=== PATIENT | female | born 1945 | race Caucasian/White ===

== ENCOUNTER 2025-01-09 13:04 | Outpatient (CLI) | payer MEDICARE, OTHER, SELFPAY ==
--- NOTE | ~2025-01-09 | DEXA_ITS ---
Bone Density Report Name: KIM MARTINEZ Age: 79 Sex: Female Ethnicity: White Date of : 1945 Indication: postmenopausal; screening for osteoporosis; height loss; prior fracture; cancer; hysterectomy; Referring Provider: MIKAYLA ATKINSON Study: Bone densitometry was performed. Exam Date: January 09, 2025 Accession number: [id number] Bone Density: Region BMD T-score Z-score Classification Femoral Neck (Left) 0.651 -1.8 0.5 Osteopenia Total Hip (Left) 0.774 -1.4 0.7 Osteopenia Femoral Neck (Right) 0.596 -2.3 0.0 Osteopenia Total Hip (Right) 0.728 -1.8 0.3 Osteopenia Total Hip Mean 0.751 -1.6 0.5 Osteopenia World Health Organization criteria for BMD impression classify patients as: Normal (T-score at or above -1.0), Osteopenia (T-score between -1.0 and -2.5), or Osteoporosis (T-score at or below -2.5). 10-year Fracture Risk: FRAX not reported because: Prior hip or vertebral fracture Treated for osteoporosis Clinical Information Provided by Patient: Have had a previous hip or vertebral fracture Has had a low trauma fracture Is being treated for osteoporosis Has used the following medications: Vitamin D, Calcium Has the following medical conditions: Cancer, Hysterectomy Patient maximum height was 67 Menopause Age: 50 No regular weight bearing exercise Drinks caffeinated beverages Onset of menses at age 12 Number of children 2 Impression: The patient has low bone mass, based on the Right Femoral Neck T-score. The patient has risk factors, including: previous fracture. Discussion: It is important to ask patients whether they are taking their medications and to encourage continued and appropriate compliance with their osteoporosis therapies to reduce fracture risk. It is also important to review their risk factors and encourage appropriate calcium and vitamin D intakes, exercise, fall prevention and other lifestyle measures. Follow-Up: Consider a repeat BMD and Vertebral Fracture Assessment (VFA) exam in 2 years or sooner if medically necessary, to reassess this patient's status. Reported by: PAUL on 01/09/2025 1:38:00 PM. Reviewed, dictated and finalized at location A.
== END 2025-01-09 13:05 | disposition home or self-care (01) ==
LOC: MICIMG 13:05
DX: M85.89 Other specified disorders of bone density and structure, multiple sites (principal); Z13.820 Encounter for screening for osteoporosis
CPT/HCPCS: 77080

== ENCOUNTER 2025-03-30 14:11 | Emergency (ER) | payer MEDICARE, OTHER, SELFPAY ==
--- NOTE | ~2025-03-30 | XR_ITS ---
EXAMINATION: XR chest 2V, 03/30/2025 14:42 HEALTH UNIT SUPERVISOR HISTORY: chest pain COMPARISON: No comparisons available. Technique: 2 views obtained. Findings: The lungs are clear, no effusion. No pneumothorax. Heart is normal size. Mediastinal and hilar contours are within normal limits. Bony thorax no acute abnormality. Impression: No acute cardiopulmonary abnormality. Reviewed, dictated and finalized at location P. TH UNIT SUPERVISOR Impression: No acute cardiopulmonary abnormality.
--- OUTSIDE RECORDS SUMMARY | 2025-03-30 14:13 | XMS_ITS | Clinical Summary ---
Author Organization [facility] Address [address] [place] [address] Phone Care Team Providers Care Spar Finisher Name Role Phone Gael Layne MD Primary Care Provider [phone] Allergies Active Allergy Reactions Criticality Noted Date Comments Codeine Swelling 12/14/2018 Social History Tobacco Use Types Packs/Day Years Used Date Smoking Tobacco: Former Cigarettes Smokeless Tobacco: Never Alcohol Use Standard Drinks/Week Comments Not Currently 0 (1 standard drink = 0.6 oz pur e alcohol) Comments No Sex and Gender Information Value Date Recorded Sex Assigned at Not on file Legal Sex Female 3:58 PM CDT Gender Identity Not on file Sexual Orientation Not on file Last Filed Vital Signs Vital Sign Reading Time Taken Comments Blood Pressure 149/72 12/14/2018 3:52 PM CDT Pulse 61 12/14/2018 3:52 PM CDT Temperature 37.2 C (98.9 F) 12/14/2018 3:52 PM CDT Respiratory Rate 16 12/14/2018 3:52 PM CDT Oxygen Saturation 96% 12/14/2018 3:52 PM CDT Inhaled Oxygen Concentration - - Weight 87.1 kg (192 lb) 12/14/2018 3:52 PM CDT Height 167.6 cm (5' 6) 12/14/2018 3:52 PM CDT Body Mass Index 30.99 12/14/2018 3:52 PM CDT Plan of Treatment Health Maintenance Due Date Last Done Comments Hepatitis C Virus (HCV) Screening 1945 TdaP Immunization 1945 Pneumococcal Immunization (5 0+ years) (1 of 1 - PCV) 1995 Zoster Immunization (1 of 2) 1995 Medicare Initial AWV [id number] 02/10/2011 Respiratory Syncytial Virus (RSV) Immunization (Adult) (1 - 1-dose 75+ series) 2020 Influenza Immunization (#1) 2024 SARS-COV-2 Immunization (2024- season) 2024 Hepatitis B Immunization Aged Out No longer eligible based on patient's age to complete this topic Human Papillomavirus (HPV) Immunization (No Doses Required) Completed Meningococcal Immunization (ACWY) Aged Out No longer eligible based on patient's age to complete this topic Rotavirus Immunization Aged Out No lo nger eligible based on patient's age to complete this topic Insurance MEDICARE [facility] Care Teams Spar Finisher Relationship Specialty Start Date End Date Gael Layne MD [address] [place] [address] PCP - General Family Medicine 12/14/18
--- NOTE | 2025-03-30 14:16 | ECG_ITS ---
Test Date: 2025-03-30 14:22:37 Measurements Intervals [place] Rate: 51 P: 43 MT: 194 QRS: -33 QRSD: 93 T: -7 QT: 448 QTc: 414 Interpretive Statements SINUS BRADYCARDIA LEFT AXIS DEVIATION PATTERN CONSISTENT WITH PULMONARY DISEASE VOLTAGE CRITERIA FOR LVH BORDERLINE T WAVE ABNORMALITY- ANTEROLAT/INF LEADS BASELINE ARTIFACT- I, II, III, AVR, AVL, AVF BORDERLINE ECG NO PRIOR ECG FOR COMPARISON Electronically Signed On 03-30-2025 14:24:05 MACHINIST SUPERVISOR OUTSIDE by Victor M Barnes D.O.
[2025-03-30 14:17] VITALS: BP 100/53; PULSE 52; RESP 20; TEMP 36.2; O2SAT 98
[2025-03-30 14:37] LABS: Hematocrit 39.8 % (37.0-47.0); Hemoglobin 12.7 g/dL (12.0-15.0); Immature Granulocyte Percent A 0.4 % (0-0.5); Lymphocytes Absolute Auto 1.28 K/mm3 (0.9-3.2); Mean Corpuscular HGB Conc 31.9 g/dl (32-36); Mean Corpuscular Hemoglobin 28.9 pg (26-34); Mean Corpuscular Volume 90.5 fl (80-100); Nucleated Red Blood Cells Absolute Auto 0.000 K/mm3 (0.0-0.012); Nucleated Red Blood Cells Perc 0.0 % (0.0-0.2); Platelet Count Result 258 k/mm3 (150-375); Red Blood Count 4.40 M/mm3 (4.2-5.4); White Blood Count 7.6 K/mm3 (4.5-10.0)
[2025-03-30 14:53] LABS: Alanine Aminotransferase 14 U/L (6-35); Albumin Level 4.0 g/dL (3.5-5.1); Alkaline Phosphatase 101 U/L (38-126); Anion Gap 8 mmol/L (4-12); Aspartate Amino Transferase 20 U/L (14-36); Bilirubin,Total 0.5 mg/dL (0.2-1.3); Blood Urea Nitrogen 21 mg/dL (7-17); Calcium 8.9 mg/dL (8.4-10.2); Carbon Dioxide 23 mmol/L (22-30); Chloride 106 mmol/L (98-107); Estimated Glomerular Filt Rate 48; Glucose 127 mg/dL (65-110); INR 1.3; Lipase 68 U/L (23-300); Potassium 3.9 mmol/L (3.4-5.0); Prothrombin Time 16.6 Seconds (11.1-14.7); Sodium 137 mmol/L (137-145); Total Protein 7.0 g/dL (6.3-8.2)
[2025-03-30 14:54] LABS: Partial Thromboplastin Time 32.7 Seconds (22.3-36.8)
[2025-03-30 15:00] LABS: Troponin I < 0.012 ng/mL (0.000-0.034)
--- NOTE | 2025-03-30 15:15 | ED_ITS ---
HPI - Chest Pain General Chief Complaint: Chest Pain Stated Complaint: chest pain Time Seen by Provider: 03/30/25 15:03 Source: patient and EMS Mode of arrival: EMS Limitations: no limitations History of Present Illness HPI narrative: 80 years old white female came to the ED from assisting living BY AMBULANCE BECAUSE CHEST PAIN AND SHORTNESS OF BREATH. IN THE ED PATIENT IS ASYMPTOMATIC, PATIENT IS VERY ANGRY BECAUSE SHE IS TELLING ME THAT SHE NEVER COMPLAINED OF CHEST PAIN OR SHORTNESS OF BREATH. CURRENTLY HER MAIN SYMPTOM IS ANGRY AND DOES NOT KNOW WHY SHE IS IN THE EMERGENCY ROOM. PATIENT IS AWAKE ALERT ORIENTED X4. Related Data Allergies Allergy/AdvReac Type Severity Reaction Status Date / Time codeine Allergy Mild Hives Verified 03/30/25 14:21 NSAIDS (Non-Steroidal Allergy Mild Hives Verified 03/30/25 14:21 Anti-Inflamma Review of Systems 2 Review of Systems: All systems reviewed & are unremarkable except as noted in HPI and below Exam 2 Narrative: GENERAL APPEARANCE: WELL-DEVELOPED, WELL-NOURISHED SKIN: NORMAL COLOR HEAD: NORMOCEPHALIC, NONTRAUMATIC EYES: CLEAR CONJUNCTIVA ENT: OROPHARYNX NORMAL, EARS NORMAL, NOSE NORMAL NECK: SUPPLE, NONTENDER CHEST AND RESPIRATORY: AIRWAY PATENT, NO RESPIRATORY DISTRESS, NO ACCESSORY MUSCLE USE HEART: REGULAR RATE/RHYTHM ABDOMEN: SOFT, NONTENDER, NO ORGANOMEGALY, QUIET BOWEL SOUNDS VASCULAR: NORMAL PERIPHERAL PULSES, NORMAL CAPILLARY REFILL. MUSCULOSKELETAL: NORMAL RANGE OF MOTION, NONTENDER BACK NEUROLOGIC: ALERT AND ORIENTED ?3, FRONT OFFICE JAVA DEVELOPER IS NORMAL TESTED, NO GROSS MOTOR DEFICIT Course Vital Signs Vital signs: Vital Signs Temperature 36.2 C L 03/30/25 14:17 Pulse Rate 52 L 03/30/25 14:17 Respiratory Rate 20 03/30/25 14:17 Blood Pressure 100/53 L 03/30/25 14:17 Pulse Oximetry 98 03/30/25 14:17 Oxygen Delivery Room Air 03/30/25 14:17 Temperature 36.2 C L 03/30/25 14:17 Pulse Rate 73 03/30/25 17:29 Respiratory Rate 18 03/30/25 17:29 Blood Pressure 151/71 H 03/30/25 17:29 Pulse Oximetry 98 03/30/25 17:29 Oxygen Delivery Room Air 03/30/25 14:17 [facility] MDM Narrative Medical decision making narrative: Patient CAME TO THE ED BY AMBULANCE WITH A REPORTED THAT PATIENT COMPLAINED OF CHEST PAIN. PATIENT DENIED ANY CHEST PAIN , PATIENT EXTREMELY ANGRY , TELLING ME THAT SHE DID NOT COMPLAIN OF CHEST PAIN OR SHORTNESS OF BREATH AND WHY SHE IS HERE. Vital signs showing blood pressure 100/53, heart rate 52, otherwise within normal limit Physical examination UNREMARKABLE, PATIENT AWAKE ALERT ORIENTED X4 Differential diagnosis include coronary artery disease, pulmonary embolism, pneumonia, pleural effusion, pleurisy, chest wall pain, blood workup today includes CBC, CMP, troponin, D-dimer showed no significant abnormality Chest x-ray showed no acute abnormality EKG showed sinus bradycardia DIAGNOSIS ALLEGED CHEST PAIN THE PT WAS DISCHARGED TO HOME.THE PT,S CONDITION UPON DISCHARGE WAS FAIR,EDUCATION WAS PROVIDED TO THE PT IN REFERENCE TO THE FINAL IMPRESSION,DISCHARGE STUDY RESULTS,TREATMENT,PROGNOSIS AND NEED FOR FOLLOW UP . Differential Diagnosis Differential Diagnosis: as above Medical Records I have reviewed the following patient records and this information was taken into consideration when formulating the assessment and plan.: previous ER visits, previous hospitalizations and previous clinic visits Lab Data 03/30/25 14:29 03/30/25 14:29 Labs: Lab Results 03/30/25 Range/Units 14:29 WBC 7.6 (4.5-10.0) K/mm3 RBC 4.40 (4.2-5.4) M/mm3 Hgb 12.7 (12.0-15.0) g/dL Hct 39.8 (37.0-47.0) % MCV 90.5 (80-100) fl MCH 28.9 (26-34) pg MCHC 31.9 L (32-36) g/dl RDW 14.3 (11.5-14.5) % Plt Count 258 (150-375) k/mm3 MPV 9.8 (7.4-10.4) fl Immature Gran % (Auto) 0.4 (0-0.5) % Neut % (Auto) 67.7 (45.5-73.1) % Lymph % (Auto) 16.8 L (18.3-44.2) % Wetzel % (Auto) 11.2 H (2.6-8.5) % Eos % (Auto) 3.4 (0-4.4) % Baso % (Auto) 0.5 (0.2-1.2) % Lymph # (Auto) 1.28 (0.9-3.2) K/mm3 Wetzel # (Auto) 0.9 H (0.1-0.6) K/mm3 Eos # (Auto) 0.3 (0-0.3) K/mm3 Baso # (Auto) 0.0 (0.0-0.1) K/mm3 Abs Immat Gran (auto) 0.03 (0.00-0.031) K/mm3 Absolute Neuts (auto) 5.2 (1.3-6.7) K/mm3 Absolute Nucleated RBC 0.000 (0.0-0.012) K/mm3 Nucleated RBC % 0.0 (0.0-0.2) % PT 16.6 H (11.1-14.7) Seconds INR 1.3 APTT 32.7 (22.3-36.8) Seconds D-Dimer < 0.27 (<0.48) ug/mL Sodium 137 (137-145) mmol/L Potassium 3.9 (3.4-5.0) mmol/L Chloride 106 (98-107) mmol/L Carbon Dioxide 23 (22-30) mmol/L Anion Gap 8 (4-12) mmol/L BUN 21 H (7-17) mg/dL Creatinine 1.09 H (0.7-1.0) mg/dL Estim Creat Clear Calc Not Reportable Estimated GFR 48 L (59 - ) Glucose 127 H (65-110) mg/dL Calcium 8.9 (8.4-10.2) mg/dL Total Bilirubin 0.5 (0.2-1.3) mg/dL AST 20 (14-36) U/L ALT 14 (6-35) U/L Alkaline Phosphatase 101 (38-126) U/L Troponin I < 0.012 (0.000-0.034) ng/mL Total Protein 7.0 (6.3-8.2) g/dL Albumin 4.0 (3.5-5.1) g/dL Lipase 68 (23-300) U/L Imaging Data Radiologist's impression: ITS Impressions Chest X-Ray 03/30/25 14:54 Impression: No acute cardiopulmonary abnormality. ECG Data EKG #1: Attestation: I personally reviewed and interpreted this ECG as follows: ECG completion date: 03/30/25 Interpretation: sinus bradycardia at 51 beats per minute, left axis deviation, pattern consistent with pulmonary disease, voltage criteria for LVH, borderline T-wave abnormality, baseline artifact, borderline EKG, no prior EKG available for comparison Critical Care Time Critical Care Time Critical Care Time: No Discharge Plan Discharge Clinical Impression: Atypical chest pain Patient Disposition: [place] Longterm/Asst Living Condition: Improved Instructions: Chest Pain (ED) Additional Instructions: RETURN IF SYMPTOMS ARE WORSENING , CALL YOUR FAMILY PHYSICIAN FOR APPOINTMENT, TAKE TYLENOL NEEDED FOR ACHES AND PAIN, CONTINUE HOME MEDICATIONS. Patient Language: Samoan Follow-up/Referrals: PHYSICIAN,SHOE STAINER [Primary Care Provider, Internal Medicine]
[2025-03-30 17:29] VITALS: BP 151/71; PULSE 73; RESP 18; O2SAT 98
== END 2025-03-30 17:28 ==
PROVIDERS: Emergency Medicine; Emergency Provider Emergency Medicine
DX: R07.89 Other chest pain (principal)
CPT/HCPCS: 36415; 71046; 80053; 83690; 84484; 85025; 85380; 85610; 85730; 93005; 99284